=== PATIENT | female | born 1950 | race Caucasian/White ===

== ENCOUNTER 2017-10-11 12:20 | Inpatient (IN) | payer MEDICARE, OTHER ==
[2017-10-11] MEDS: SODIUM CHLORIDE 0.9% 1L BAG IV* (12:46)
[2017-10-11 13:03] LABS: ADD MAN DIFF? NO
[2017-10-11 13:05] LABS: ABNORMAL IP MESSAGE 1; BASOPHILS % 0.5 % (0.0-2.0); EOSINOPHILS % 0.5 % (0.0-7.0); HEMATOCRIT 29.1 % (37.0-47.0); HEMOGLOBIN 9.3 g/dl (12.0-16.0); LYMPHOCYTES # 0.5 10^3/ul (0.8-2.9); MEAN CORPUSCULAR HEMOGLOBIN 30.1 pg (29.0-33.0); MEAN CORPUSCULAR VOLUME 94.2 fl (82.0-101.0); MEAN PLATELET VOLUME 14.2 fl (7.4-10.4); MONOCYTE # 0.5 10^3/ul (0.3-0.9); MONOCYTES % 8.2 % (0.0-11.0); NEUTROPHIL # 4.8 10^3/ul (1.6-7.5); NEUTROPHILS % 82.3 % (39.0-77.0); PLATELET COUNT 104 10^3/UL (140-415); RED BLOOD COUNT 3.09 10^6/ul (4.20-5.40); RED CELL DISTRIBUTION WIDTH 13.6 % (11.5-14.5)
[2017-10-11 13:05] LABS: WHITE BLOOD COUNT 5.9 10^3/ul (4.8-10.8)
[2017-10-11 13:19] LABS: INR 1.04; PROTIME 13.7 Sec (11.9-14.9); PT RATIO 1.1
[2017-10-11 13:20] LABS: PARTIAL THROMBOPLASTIN TIME 24.9 Sec (25.0-35.0)
[2017-10-11 13:23] LABS: ALANINE AMINOTRANSFERASE 31 IU/L (13-69); ALBUMIN 2.3 g/dl (3.3-4.9); ALBUMIN/GLOBULIN RATIO 1.15; ALKALINE PHOSPHATASE 40 IU/L (42-121); ANION GAP 9 (8-16); ASPARTATE AMINO TRANSFERASE 12 IU/L (15-46); BLOOD UREA NITROGEN 13 mg/dl (7-20); CALCIUM 7.4 mg/dl (8.4-10.2); CARBON DIOXIDE 25 mmol/L (21-31); CHLORIDE 108 mmol/L (97-110); CREATININE 0.58 mg/dl (0.44-1.00); GLUCOSE 86 mg/dl (70-220); SODIUM 139 mmol/L (135-144); TOTAL PROTEIN 4.3 g/dl (6.1-8.1)
[2017-10-11 13:25] LABS: LACTIC ACID 0.7 mmol/L (0.5-2.0)
[2017-10-11 13:27] LABS: POTASSIUM 2.9 mmol/L (3.5-5.1)
[2017-10-11 13:36] LABS: TROPONIN-I < 0.012 ng/ml (0.00-0.12)
[2017-10-11] MEDS: CEFEPIME 2GM/50 ML (PMX) 50 ML IVPB (13:59)
[2017-10-11] MEDS: MAGNESIUM SULFATE 2 GM/50 ML 50 ML IVPB (14:15)
[2017-10-11] MEDS: POTASSIUM CHLORIDE 100 ML IVPB ×3 (14:19→18:22)
[2017-10-11] MEDS: VANCOMYCIN 1 GM (PMX) 250 ML IVPB (14:30)
[2017-10-11] MEDS ORDERED: NORepinephrine 8MG/250 ML (PMX 250 ML (15:30)
[2017-10-11] MEDS: SOD CHLORIDE 0.9% 1,000 ML IV (15:55)
[2017-10-11] MEDS ORDERED: ALBUTEROL 0.083% (NEB) 2.5 MG/3 ML AMP NEB (16:30)
[2017-10-11] MEDS ORDERED: ACETAMINOPHEN 325 MG TAB PO (16:30)
[2017-10-11] MEDS ORDERED: DOCUSATE SODIUM 100 MG CAP PO (16:30)
[2017-10-11] MEDS ORDERED: MAGNESIUM HYDROXIDE 30ML CUP PO (16:30)
[2017-10-11] MEDS ORDERED: ONDANSETRON 4 MG INJ IV (16:30)
[2017-10-11 16:46] LABS: ADD UMIC YES; UR ASCORBIC ACID NEGATIVE (NEGATIVE); UR BACTERIA FEW /HPF (NONE SEEN); UR BILIRUBIN (Dip) NEGATIVE (NEGATIVE); UR BLOOD (Dip) 3+ mg/dL (NEGATIVE); UR CLARITY TURBID (CLEAR); UR COLOR AMBER (YELLOW); UR GLUCOSE (Dip) NEGATIVE (NEGATIVE); UR KETONES (Dip) 1+ mg/dL (NEGATIVE); UR LEUKOCYTE ESTERASE (Dip) TRACE Leu/ul (NEGATIVE); UR MUCUS MANY /HPF (NONE SEEN); UR NITRITE (Dip) POSITIVE (NEGATIVE); UR RBC > 182 /HPF (0-5); UR SPECIFIC GRAVITY (Dip) 1.031 (1.003-1.030); UR TOTAL PROTEIN (Dip) 2+ mg/dl (NEGATIVE); UR UROBILINOGEN (Dip) NEGATIVE (NEGATIVE); UR WBC > 182 /HPF (0-5)
[2017-10-11] MEDS: NORepinephrine 8MG/250 ML (PMX 250 ML IV (17:22)
[2017-10-11] MEDS: METHYLPRED. NA SUCC 1,000 MG in DEXTROSE 5% 50 ML IVPB (18:17)
[2017-10-11 18:54] LABS: LACTIC ACID 1.1 mmol/L (0.5-2.0)
[2017-10-11 19:15] LABS: LACTIC ACID 0.8 mmol/L (0.5-2.0)
[2017-10-11] MEDS: D5W-0.45 NACL + KCL 20 MEQ 1,000 ML IV (20:17)
[2017-10-11] MEDS: ATORVASTATIN 10 MG TAB PO (20:52)
[2017-10-11] MEDS ORDERED: HEPARIN 5,000 UNIT/0.5 ML VIAL SC (22:00)
[2017-10-12] MEDS: PANTOPRAZOLE (EC) 40 MG TAB PO (05:06)
[2017-10-12 05:52] LABS: ADD MAN DIFF? NO
[2017-10-12 06:04] LABS: WHITE BLOOD COUNT 12.5 10^3/ul (4.8-10.8)
[2017-10-12 06:04] LABS: ABNORMAL IP MESSAGE 1; BASOPHILS % 0.2 % (0.0-2.0); HEMATOCRIT 44.4 % (37.0-47.0); HEMOGLOBIN 13.6 g/dl (12.0-16.0); LYMPHOCYTES # 0.1 10^3/ul (0.8-2.9); LYMPHOCYTES % 0.9 % (15.0-51.0); MEAN CORPUSCULAR HEMOGLOBIN 29.3 pg (29.0-33.0); MEAN CORPUSCULAR HGB CONC 30.6 g/dl (32.0-37.0); MEAN CORPUSCULAR VOLUME 95.7 fl (82.0-101.0); MONOCYTE # 0.3 10^3/ul (0.3-0.9); MONOCYTES % 2.7 % (0.0-11.0); PLATELET COUNT 166 10^3/UL (140-415); RED BLOOD COUNT 4.64 10^6/ul (4.20-5.40); RED CELL DISTRIBUTION WIDTH 13.7 % (11.5-14.5)
[2017-10-12 06:14] LABS: POSITIVE DIFF @See below
[2017-10-12 06:30] LABS: ALBUMIN 3.5 g/dl (3.3-4.9); ANION GAP 17 (8-16); BLOOD UREA NITROGEN 8 mg/dl (7-20); CARBON DIOXIDE 16 mmol/L (21-31); CHLORIDE 115 mmol/L (97-110); CREATININE 0.49 mg/dl (0.44-1.00); GLUCOSE 269 mg/dl (70-220); MAGNESIUM 2.3 mg/dl (1.7-2.5); PHOSPHORUS 2.3 mg/dl (2.5-4.9); POTASSIUM 4.9 mmol/L (3.5-5.1); SODIUM 143 mmol/L (135-144)
[2017-10-12] MEDS: TOPIRAMATE 25 MG TAB PO (08:17)
[2017-10-12] MEDS: ESCITALOPRAM 10 MG TAB PO (08:17)
[2017-10-12] MEDS: OXYBUTYNIN (XL) 5 MG TAB PO (08:17)
[2017-10-12] MEDS ORDERED: NON-FORMULARY/PATIENT OWN MED (Mirabegron (Mybetriq) 25 MG) PO (09:00)
[2017-10-12] MEDS: ENOXAPARIN 40 MG/0.4 ML SYG SC (09:14)
[2017-10-12] MEDS: METHYLPRED. NA SUCC 1,000 MG in DEXTROSE 5% 50 ML IVPB (09:35)
[2017-10-12] MEDS: D5W-0.45 NACL + KCL 20 MEQ 1,000 ML IV (10:31)
[2017-10-12] MEDS: [UNRECOGNIZED DRUG - OTHER] XX (20:00)
[2017-10-12] MEDS: ATORVASTATIN 10 MG TAB PO (21:00)
[2017-10-12] MEDS: SOD CHLORIDE 0.9% 500 ML IV (23:47)
[2017-10-13] MEDS: ALBUMIN HUMAN 5% 250 ML IV (00:07)
[2017-10-13] MEDS: D5W-0.45 NACL + KCL 20 MEQ 1,000 ML IV ×2 (03:20→06:20)
[2017-10-13] MEDS: [UNRECOGNIZED DRUG - OTHER] XX ×2 (03:30→11:30)
[2017-10-13] MEDS: morphine 2 MG INJ IV ×3 (03:37→18:11)
[2017-10-13] MEDS: PANTOPRAZOLE (EC) 40 MG TAB PO (06:00)
[2017-10-13 07:21] LABS: ADD MAN DIFF? NO
[2017-10-13 07:32] LABS: ABNORMAL IP MESSAGE 1; BASOPHILS % 0.1 % (0.0-2.0); HEMOGLOBIN 10.1 g/dl (12.0-16.0); LYMPHOCYTES # 0.3 10^3/ul (0.8-2.9); LYMPHOCYTES % 4.1 % (15.0-51.0); MEAN CORPUSCULAR HEMOGLOBIN 29.9 pg (29.0-33.0); MEAN CORPUSCULAR HGB CONC 31.6 g/dl (32.0-37.0); MEAN CORPUSCULAR VOLUME 94.7 fl (82.0-101.0); MONOCYTE # 0.4 10^3/ul (0.3-0.9); MONOCYTES % 5.4 % (0.0-11.0); NEUTROPHIL # 6.8 10^3/ul (1.6-7.5); NEUTROPHILS % 89.9 % (39.0-77.0); PLATELET COUNT 104 10^3/UL (140-415); RED BLOOD COUNT 3.38 10^6/ul (4.20-5.40); RED CELL DISTRIBUTION WIDTH 14.1 % (11.5-14.5)
[2017-10-13 07:32] LABS: WHITE BLOOD COUNT 7.6 10^3/ul (4.8-10.8)
[2017-10-13 07:40] LABS: POSITIVE DIFF @See below
[2017-10-13 07:52] LABS: ALBUMIN 2.9 g/dl (3.3-4.9); ANION GAP 8 (8-16); BLOOD UREA NITROGEN 9 mg/dl (7-20); CARBON DIOXIDE 22 mmol/L (21-31); CHLORIDE 117 mmol/L (97-110); GLUCOSE 140 mg/dl (70-220); MAGNESIUM 2.1 mg/dl (1.7-2.5); PHOSPHORUS 1.5 mg/dl (2.5-4.9); POTASSIUM 3.9 mmol/L (3.5-5.1); SODIUM 143 mmol/L (135-144)
[2017-10-13] MEDS: ESCITALOPRAM 10 MG TAB PO ×2 (08:49→08:55)
[2017-10-13] MEDS: ENOXAPARIN 40 MG/0.4 ML SYG SC (08:51)
[2017-10-13] MEDS: OXYBUTYNIN (XL) 5 MG TAB PO (08:54)
[2017-10-13] MEDS: TOPIRAMATE 25 MG TAB PO (08:54)
[2017-10-13] MEDS: METHYLPRED. NA SUCC 1,000 MG in DEXTROSE 5% 50 ML IVPB ×2 (09:00→11:33)
[2017-10-13] MEDS: HYDROmorphONE 0.5 MG/0.5 ML SYG IV (15:15)
[2017-10-13] MEDS ORDERED: ACETAMINOPHEN 650 MG SUPP PR (17:30)
[2017-10-13] MEDS ORDERED: ONDANSETRON 4 MG INJ IV (17:30)
[2017-10-13] MEDS ORDERED: ATROPINE 1% 5 ML OPH SL (17:30)
[2017-10-13] MEDS ORDERED: LORAZEPAM 2 MG INJ IM (17:30)
[2017-10-13] MEDS: morphine (DRIP) 100 MG/100 ML 100 ML IV (18:25)
[2017-10-13] MEDS: LORAZEPAM 2 MG INJ IV (18:34)
[2017-10-13] MEDS: SCOPOLAMINE 1.5 MG PATCH TRANSDERM (18:34)
== END 2017-10-14 01:25 | disposition expired | DRG 698 ==
LOC: TEL 16:47 → E/R 12:20 → MS1 10-13 21:48
DX: T83.518A Infection and inflammatory reaction due to other urinary catheter, initial encounter (principal); A41.9 Sepsis, unspecified organism; R65.21 Severe sepsis with septic shock; J69.0 Pneumonitis due to inhalation of food and vomit; G82.50 Quadriplegia, unspecified; G93.41 Metabolic encephalopathy; N39.0 Urinary tract infection, site not specified; G82.20 Paraplegia, unspecified; G35 Multiple sclerosis; N31.9 Neuromuscular dysfunction of bladder, unspecified; D63.8 Anemia in other chronic diseases classified elsewhere; F32.9 Major depressive disorder, single episode, unspecified; M62.81 Muscle weakness (generalized); E87.6 Hypokalemia; Z66 Do not resuscitate; B96.20 Unspecified Escherichia coli [E. coli] as the cause of diseases classified elsewhere; B96.5 Pseudomonas (aeruginosa) (mallei) (pseudomallei) as the cause of diseases classified elsewhere; B95.2 Enterococcus as the cause of diseases classified elsewhere
CPT/HCPCS: 36415; 70450; 71045; 76937; 80053; 80069; 81001; 83605; 83735; 84484; 85025; 85610; 85730; 87040; 87086; 93005; 96365; 96366; 96368; 96372; 96375; 96376; 99291-25